=== PATIENT | female | born 1995 | race Caucasian/White ===

== ENCOUNTER 2016-09-14 20:43 | Outpatient (CLI) | payer MEDICAID ==
[~2016-09-14] VITALS: Ht 172.7 cm; Wt 50.8 kg
[~2016-09-14 20:43] MED LIST: ALBUTEROL-200 PUFFS/ IH; ALBUTEROL2 PUFFS/17 IN; AMOXICILLIN500 M2 PO; AMOXICILLIN875 MG PO; AMOXIL250 MG/5 M PO; CIPRO 500MG TA500 MG PO; HYDROCODONE-APA1 TA1 PO; MEDROL 4MG. DOSE4 MG PO; MINOCYCLINE100 MG PO; MOTRIN IB200 MG PO; NOMEDS; NOMEDS XX; PEN-VK500 MG PO; PREDNISOLO15 MG/5 M1 PO; PREDNISONE50 MG PO; PRENATAL PLUS1 TA1 PO; SEPTRA DS 800 M1 TAB PO; TESSALON PERLE100 M1 PO; ZITHROMAX Z PA250 MG PO
[2016-09-14 21:13] LABS: AMPHETAMINES/METAMPHETAMINES NEGATIVE ng/mL (<1000)
[2016-09-14 21:14] LABS: URINE BILIRUBIN - DIPSTICK NEGATIVE (NEG); URINE BLOOD NEGATIVE (NEG)
[2016-09-14 21:15] VITALS: BP 128/73
[2016-09-14 21:19] LABS: URINE SQUAMOUS CELLS 20-50 #/hpf (0-5)
[2016-09-14 22:48] LABS: HEMOGLOBIN 10.7 g/dL (12.2-16.2); LYMPH # 1.6 K/mm3 (0.7-4.5); LYMPH % 24.7 % (10-50.0)
--- NOTE | 2016-09-14 22:56 | HISTORY AND PHYSICAL REPORT ---
See Addendum Demographics: Admit date: 09/14/16 Chief complaint: contractions and back pain PRIMARY DIAGNOSIS: ABD PAIN AND PRESSURE Allergies: Coded Allergies: No Known Allergies (09/14/16) History of present illness: History of present illness: 21 y/o @ 32 2/7 weeks presents to L&D with c/o contractions and back pain that started earlier this morning. States she did not present for care earlier as the pain was not that bad. Pt notes worsening of her contractions now. Pt denies vaginal bleeding or LOF. Admits to good FM. Notes last intercourse was 2 days ago without postcoital bleeding. Pt denies any urinary symptoms. Denies hematuria, dysuria, frequency or urgency. Notes uncomplicated care thus far. Past medical history: Family HX Family Hx Insignificant Yes Diabetes Yes CAD Yes Hypertension Yes Hyperlipidemia Yes Cancer Yes TB No Immunization HX Ped.Immunizations UTD Yes DT/Tetanus 11/22/12 Flu 2015-FSN Pneumonia Refuses General CAD? No Angina: No [place]: No Hypertension? No Hyperlipidemia? No CHF? No DVT? No PE? No COPD? No Asthma? Yes Anemia? No GERD? No Gastric ulcers? No GI Bleed? No Hernia? No Thyroid Problems? No Hypothyroidism? No CVA? No Seizures? No Diabetes? No Insulin Dependent: No Insulin Pump: No Home FSBS? No Renal Insuffiency? No UTI? Yes Stones? No BPH? No GB Disease: No Nephritic Syndrome? No Asplenia? No Hepatitis? No Sickle Cell Disease? No Arthritis? No Migraines? No Cataracts? No Glaucoma? No MRSA? No HIV? No TB? No Anxiety? No Depression? Yes Cancer? No More? No Past Surgical HX Previous Surgery?N Current home meds: Reported Medications MULTIVIT-MIN W/FE-FA ( Multivitamin Tablet) 1 TAB PO DAILY Social Hx: Smoking HX Tobacco No Alcohol Alcohol: No Hx of Drug Use Drug Use? No Patien't marital status is single Patient's support system is fair Review of systems: Constitutional No: no symptoms reported, see HPI, chills, diaphoresis, fever, malaise, weakness , other. Eyes No: no symptoms reported, see HPI, blindness, blurred vision, drainage, decreased acuity, foreign body sensation, inflammation, pain, photophobia, previous injury, shadows, tunnel vision, vision change, contact lenses, glasses, other. Ears, Nose, Mouth, Throat No no symptoms reported, No see HPI, No ear pain, No ear discharge, No nose pain , No drooling/excessive saliva, No nose discharge, No nose congestion, No epistaxis, No mouth pain, No mouth swelling, No tongue swelling, No dental caries, No loose teeth, No missing teeth, No throat pain, No throat swelling, No other Respiratory No: no symptoms reported, see HPI, cough, orthopnea, shortness of breath, SOB with excertion, SOB at rest, stridor, wheezing, other. Cardiovascular No no symptoms reported, No see HPI, No chest pain, No edema, No palpitations, No syncope, No other Gastrointestinal/Abdominal No no symptoms reported, No see HPI, No abdomen distended, No abdominal pain, No blood streaked bowels, No constipated, No diarrhea, No difficulty swallowing, No nausea, No poor appetite, No poor fluid intake, No rectal bleeding, No vomiting, No other Genitourinary pain, pelvic pain. No: no symptoms reported, see HPI, discharge, abnormal vaginal bleeding, normal menstrual period, vaginal discharge, dysuria, frequency , hesitancy, hematuria, dyspareunia, penis pain, scrotal/testicular pain, hx stds, genital lesions, other, , labia tenderness, penis tenderness, scrotal tenderness. Musculoskeletal back pain. No: no symptoms reported, see HPI, gout, joint pain, joint swelling, muscle pain, muscle stiffness, neck pain, other. Skin No: no symptoms reported, see HPI, change in color, change in hair/nails, dryness, lesions, lumps, rash, other. Neurological No: see HPI, no symptoms reported, headache, numbness, tingling, tremors, weakness, parasthesia, seizure disorder. Psychiatric No: no symptoms reported, anxious, depressed, other, withdrawn. Exam: Lab data for last 24 hours: Laboratory Tests 09/14/165: WBC 6.4, RBC 3.68 L, Hgb 10.7 L, Hct 31.7 L, MCV 86.2, RDW 15.5, Plt Count 131 L, MPV 8.3, Gran % 65.0, Gran # 4.1, Lymphocytes % 24.7, Monocytes % 7.1, Eosinophils % 2.9, Basophils % 0.3, Lymphocytes # 1.6, Monocytes # 0.5, Eosinophils # 0.2, Basophils # 0.0, PUBS MCHC 33.8, MCH 29.1 09/14/162049: Fibronectin NEGATIVE, Opiates Screen NEGATIVE, Urine Methadone Screen NEGATIVE, Barbiturates NEGATIVE, Phencyclidine Screen NEGATIVE, Amphetamines Screen NEGATIVE, Benzodiazepines Screen NEGATIVE, Cocaine Screen NEGATIVE, Marijuana (THC) Screen NEGATIVE, Urine Color YELLOW, Urine Appearance SL CLOUDY, Urine pH 6.5, Ur Specific Russell 1.015, Urine Protein NEGATIVE, Urine Ketones NEGATIVE, Urine Blood NEGATIVE, Urine Nitrate NEGATIVE, Urine Bilirubin NEGATIVE , Urine Urobilinogen 0.2, Ur Leukocyte Esterase 2+ H, Urine WBC 5-10, Ur Squamous Epith Cells 20-50, Urine Renal Cells 5-10, Urine Bacteria TRACE, Urine Glucose NEGATIVE Microbiology 09/14 2049 URINE CC: Urine Culture - RECD Admission vital signs: 1ST Vital Signs Result Date Time B/P 128/73 09/14 2114 Temp 98.0 09/14 2114 Pulse 95 09/14 2114 Resp 18 09/14 2114 Exam General appearance: normal appearance Cardiovascular: normal exam Respiratory: normal exam ABD: normal bowel sounds (gravid), no rebound, soft, no tenderness, no guarding Extremities: normal exam Skin: normal exam Additional information: SVE per RN closed/thick/high; fFN collected Plan: Problem List 1. contractions 2. Back pain affecting Plan: - contractions r/o PTL- cervical exam and fFN reassurring but will recheck in 2hours to r/o PTL; IV hydration and terb for tocolysis -Urine with 2+ leuk, will send urine for culture -PTL/ contraction may be secondary to cervicitis, will send urine GC/CT; no evidence of other obvious infectious process -Thrombocytopenia-likely gestational. Will have pt f/u with primary OB to r/o other etiology at [id number]
[2016-09-14 23:55] LABS: ABO BLOOD TYPE A; RH BLOOD TYPE POSITIVE
--- NOTE | 2016-09-15 00:22 | ACUTE CARE PROGRESS NOTE (QUA) ---
See Addendum Progress Notes Subjective Date 09/15/16 Time 0018 Note feeling much better. contractions resolved. Patient/family reports: feeling better, no complaints Objective Findings Last VS-Temp:98.0 B/P:128/73 Pulse:95 Resp:18 SaO2: Last weight lbs:112 oz:0 [id number] Method:Floor Scales Exam General appearance: normal appearance Cardiovascular: normal exam Respiratory: normal exam ABD: normal exam Genitourinary: normal voiding & quantity, SVE:closed/thick/high examined by me Assessment/Plan Problem List 1. contractions 2. Back pain affecting Patient condition Improving Plan: initiate discharge plan This inpt stay is expected to cross 2 MNs from start of care No Comments: contraction, no evidence of PTL, fFN negative, no cervical change. s/p 1 dose of terb and 2 L of IV fluids for hydration For d/c home. Advised to f/u with primary OB in 2-3 days. No heav lifting or anything PV at 0022
[2016-09-17 10:37] LABS: Neisseria gonorrhoeae, NAA Negative (Negative)
== END 2016-09-15 02:40 | disposition home or self-care (01) ==
LOC: OBOUT 20:43 → OB 20:43 → OBOUT 09-15 02:40
PROVIDERS: Obstetrics & Gynecology
DX: O26.93 Pregnancy related conditions, unspecified, third trimester (principal); Z3A.32 32 weeks gestation of pregnancy; R10.9 Unspecified abdominal pain